=== PATIENT | male | born 1945 | race Native Hawaiian/Other Pacific Islander ===

== ENCOUNTER 2022-04-17 14:52 | Emergency (ER) | payer OTHER ==
[~2022-04-17] VITALS: Ht 175.3 cm; Wt 56.2 kg
[2022-04-17 15:29] LABS: PLATELET COUNT 480 K/uL (142-355)
[2022-04-17 15:39] LABS: POTASSIUM 3.7 mmol/L (3.6-5.2)
[2022-04-17 15:40] LABS: PARTIAL THROMBOPLASTIN TIME 27.2 SECONDS (24.5-33.6)
[2022-04-17 17:53] VITALS: BP 177/81; TEMP 98.4
== END 2022-04-17 17:56 | disposition home or self-care (01) ==
LOC: ED 14:57
PROVIDERS: Emergency Medicine
DX: J43.9 Emphysema, unspecified (principal); Z20.822 Contact with and (suspected) exposure to COVID-19
CPT/HCPCS: 36600; 80053; 81002; 82805; 83880; 84484; 85027; 85379; 85610; 85730; 87040; 87502; 87635; 93005; 94664; 96365; 99284; J1956; U0003